=== PATIENT | male | born 2000 | race Caucasian/White ===

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

== ENCOUNTER 2021-07-28 20:57 | Emergency (ER) | payer MEDICAID, SELFPAY ==
--- NOTE | ~2021-07-28 | XR_ITS ---
EXAMINATION: XR KNEE, RIGHT CLINICAL INFORMATION: Decreased range of motion History of right ACL tear COMPARISON: 06/09/2019 TECHNIQUE: Four views of the right knee. FINDINGS: There is a moderate joint effusion. Sclerotic tracks through the distal femur and proximal tibia suggest surgical repair of the anterior cruciate ligament. No acute fracture. Bones are normally mineralized. XR/XR knee RT 4V IMPRESSION: 1. Moderate joint effusion. 2. Postsurgical change.
[2021-07-28 20:59] VITALS: BP 127/65; PULSE 60; RESP 16; TEMP 36.6; O2SAT 99; BMI 39.9
[2021-07-28 22:00] VITALS: BP 123/73; PULSE 57; RESP 16; TEMP 36.7; O2SAT 99
--- NOTE | 2021-07-28 22:12 | ED_ITS ---
HPI - Extremity Injury (Lower) General Chief Complaint: Extremity Injury, Lower Stated Complaint: knee pain Time Seen by Provider: 07/28/21 22:06 Source: patient Mode of arrival: ambulatory Limitations: no limitations History of Present Illness HPI Narrative: Patient comes emergency room complaining of right knee pain. Patient states that 2 days ago he was playing basketball, hurt his knee popping multiple times while he was playing. Since then, patient has been able to bear weight, pain is 2/10, patient states that his knee feels stiff when ever he bends it but is not painful. Patient able to walk normal. Patient concerned about his home because several years ago he had a right ACL tear complaint: knee injury Related Data Allergies Allergy/AdvReac Type Severity Reaction Status Date / Time No Known Allergies Allergy Unverified 07/28/21 21:04 Review of Systems Review of Systems: Constitutional : No Weight loss, No Fever, No Chills, No Night Sweats, No Fatigue, No Malaise ENT/Mouth : No Hearing loss, No Ear Pain, No Nasal Congestion, No Sinus Pain, No Hoarseness, No sore throat, No Rhinorrhea, No Swallowing Difficulty Eyes: No Eye Pain, No Swelling, No Redness, No Foreign Body, No Discharge, No Vision Changes Cardiovascular : No Chest Pain, No SOB, No Dyspnea on Exertion, No Orthopnea, No Edema, No Palpitations Respiratory : No Cough, No Sputum, No Wheezing, No Smoke Exposure, No Dyspnea Gastrointestinal : No Nausea, No Vomiting, No Diarrhea, No Constipation, No abdominal Pain, No Hematochezia, No Melena Genitourinary : no irregular bleeding, No Dysuria, No Urinary Frequency, No Hematuria, No Urinary Incontinence, No Urgency, No Flank Pain, No Urinary Flow Changes, No Hesitancy Musculoskeletal : Complaining of right knee stiffness, mild right knee discomfort, No Myalgias, No Joint Swelling Skin : No Skin Lesions, No rash Neuro : No Weakness, No Numbness, No Paresthesias, No Loss of Consciousness, No Dizziness, No Headache Psych : No Anxiety/Panic, No Depression, No SI/HI/AH/VH, No Social Issues, Heme/Lymph: No Bruising, No Bleeding,No Lymphadenopathy Endocrine : No Polyuria, No Polydipsia, No Temperature Intolerance PMFSH Past Medical History Medical History Asthma Surgical History History of repair of ACL Social History Social History Advance Directives: No Advance Directives Information Provided: No Physical Exam Vital Signs: Vital Signs: Last Vital Signs Temp 98.1 F 07/28/21 22:00 Pulse 57 07/28/21 22:00 Resp 16 07/28/21 22:00 BP 123/73 07/28/21 22:00 Pulse Ox 99 07/28/21 22:00 Body Mass Index 39.9 Const: Other: Appearance: Alert. Oriented X3. No acute distress. Eyes: Pupils equal, round and reactive to light. ENT: Pharynx normal. Neck: Normal inspection. Neck supple. No lymph nodes noted. No crepitus CVS: Normal heart rate and rhythm. Pulses normal. Normal S1 and S2 Respiratory: No respiratory distress. Breath sounds normal. No Wheezing. No rales Abdomen: Soft and nontender. No rigidity. No distention. good BS x4 Skin: Skin warm and dry. Normal skin color. Normal skin turgor. Extremities: No lower extremity edema. Patient is able to bear weight, able to flex and extend the right knee. Mild discomfort to palpation around the patella, seems to have a knee effusion Neuro: Oriented X 3. No motor deficit. No sensory deficit. Moving all extermities. No slurred speech. Course Course Course Narrative: I discussed with the patient that the x-ray shows chronic changes plus a moderate joint effusion. Discussed with the patient that he needs to be seen by his PCP, he may need an MRI. At this time, patient states that the pain is very minimal, declined crutches, states he can walk well. Knee is not erythematous, not painful to touch, joint infection is not suspected MDM - Extremity Injury (Lower) Imaging Data Right knee x-ray: Radiologist's impression: There is a moderate joint effusion. Sclerotic tracks through the distal femur and proximal tibia suggest surgical repair of the anterior cruciate ligament. No acute fracture. Bones are normally mineralized.? XR/XR knee RT 4V IMPRESSION: ? 1. Moderate joint effusion. 2. Postsurgical change. Discharge Plan Discharge Clinical Impression: Effusion of knee joint right Patient Disposition: Home, Self-Care Instructions: Swollen Knee Joint (ED) Additional Instructions: Please follow-up with your primary care physician tomorrow. If you have any worsening or new symptoms, please return to the emergency room or call 911 Referrals: Aquilino Rasmussen PA-C [Physician Mutual Fund Manager] - 2 days
== END 2021-07-28 22:42 | disposition home or self-care (01) ==
PROVIDERS: Emergency Provider Emergency Medicine
DX: M25.461 Effusion, right knee (principal); M25.561 Pain in right knee
CPT/HCPCS: 73564; 99283; 99284

== ENCOUNTER 2021-08-06 12:57 | Outpatient (REF) | payer MEDICAID, SELFPAY ==
--- NOTE | ~2021-08-06 | MR_ITS ---
EXAMINATION: MR KNEE WITHOUT CONTRAST, RIGHT CLINICAL INFORMATION: Swelling. Pain status post basketball injury. Prior ACL surgery. COMPARISON: None TECHNIQUE: MRI of the knee without contrast was performed using routine sequences on a high-field scanner. FINDINGS: MENISCI: Medial Meniscus: There is a peripheral longitudinal tear of the medial meniscus at the capsular attachment, consistent with a ramp lesion. Lateral Meniscus: An ill-defined partial tear of the posterior root insertion may be chronic as the margins appear frayed. A horizontal tear is present at the superior surface of the junction of the anterior horn and body with partial extrusion of the meniscal body. LIGAMENTS: Cruciate: ACL graft is completely torn with laxity of the remaining fibers in the intercondylar notch. PCL is intact. There is mild cystic expansion of the tibial tunnel, measuring up to 1.4 cm in diameter. Collateral: Intact EXTENSOR MECHANISM: Intact ARTICULAR CARTILAGE/BONE: Patellofemoral Compartment: Small partial-thickness chondral fissures are present at the medial patellar and trochlear facets. Trochlear cartilage is normal. Medial Compartment: Mild chondral thinning is noted at the lateral tibial plateau posteriorly with minimal subchondral edema. There are small marginal osteophytes. Lateral Compartment: Small marginal osteophytes. Minimal chondral fissuring at the posterior margin of the lateral tibial plateau. JOINT FLUID AND BURSAE: Small joint effusion. No Alexander's cyst. MR/MR knee RT wo con IMPRESSION: 1. Complete tear of the ACL graft. Mild cystic expansion of the tibial tunnel. 2. Peripheral longitudinal tear at the posterior horn of the medial meniscus. 3. Two separate tears of the lateral meniscus. The partial tear at the posterior root insertion may be chronic in nature. 4. Minimal tricompartmental arthrosis. 4. Small joint effusion.
== END 2021-08-06 12:58 | disposition home or self-care (01) ==
LOC: HO.MRI 12:57
PROVIDERS: PCP Internal Medicine; Visit Provider Internal Medicine
DX: M25.461 Effusion, right knee (principal); M25.561 Pain in right knee
CPT/HCPCS: 73721

== ENCOUNTER 2021-08-07 07:51 | Outpatient (REF) | payer MEDICAID, SELFPAY ==
--- NOTE | ~2021-08-07 | XR_ITS ---
EXAMINATION: XR KNEE, RIGHT CLINICAL INFORMATION: Knee pain COMPARISON: Right knee radiograph from 07/28/2021 TECHNIQUE: [place] view of the right knee FINDINGS: No acute visible fracture or dislocation. Evaluation is limited without orthogonal projections. XR/XR knee RT 1V IMPRESSION: 1. No acute visible fracture or dislocation. 2. Evaluation is limited without orthogonal projections.
== END 2021-08-07 07:52 | disposition home or self-care (01) ==
LOC: HO.HOSX 07:51
PROVIDERS: Visit Provider Physician Assistant
DX: S83.91XA Sprain of unspecified site of right knee, initial encounter (principal)
CPT/HCPCS: 73560; 99202

== ENCOUNTER → 2022-12-17 08:41 | Outpatient (BNVA) | payer SELFPAY | PROVIDERS: Visit Provider Physician Assistant | DX: Z02.79 Encounter for issue of other medical certificate (principal) ==

== ENCOUNTER 2023-08-12 15:11 | Outpatient (REF) | payer MEDICAID, SELFPAY ==
--- NOTE | ~2023-08-12 | XR_ITS ---
EXAMINATION: XR KNEE, LEFT CLINICAL INFORMATION: Left knee injury. COMPARISON: 06/09/2019 TECHNIQUE: Four views of the left knee. FINDINGS: Alignment is anatomic. Joint spaces are maintained. No displaced fracture. No significant joint effusion. XR/XR knee LT 4V IMPRESSION: No acute abnormality.
== END 2023-08-12 15:12 | disposition home or self-care (01) ==
LOC: HO.HHCX 15:11
PROVIDERS: Visit Provider Family Medicine
DX: M25.562 Pain in left knee (principal)
CPT/HCPCS: 73564

== ENCOUNTER 2024-01-25 10:58 | Outpatient (AMB) | payer MEDICAID, SELFPAY ==
--- NOTE | 2024-01-25 11:06 | MHC.OFFVIS ---
Intake Vital Signs 01/25/24 11:08 Height 5 ft 7 in Weight 242 lb BMI 37.9 Intake Visit Reasons: New Prob - B/L knee pain Intake Note: Ten is a 23 year old male who presents today for a evaluation of his bilateral knee pain. Patient reports his main concerns is his right knee, however he is having similar symptoms in pain on his left knee. He states that his right knee is worse than his left knee. Patient would like to know if he is able to get a knee brace for his right knee to help him out when he works. Allergies No Known Allergies Allergy (Verified 01/25/24 11:11) HPI New Prob - B/L knee pain HPI Details 23-year-old male who presents in the office today for a follow up of bilateral knee pain. The patient was last seen in the office by Dr. Gallardo on 08/07/2021. He had reported sustaining an injury to the right knee on 07/26/2021 while playing basketball. While in the office today the patient reports his main concern is his right knee. He does reports similar symptoms in the left knee, but states the right knee is worse than the left knee. He would like to discuss the use of a brace to support the right knee when he works. Patient has a surgical history of right knee ACL reconstruction on 08/03/[address] Layne. 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 No ecchymosis, erythema, or joint effusion. No tenderness to palpation to the medial or lateral joint lines. Full ROM. Crepitus felt with ROM. Negative Kaz's. Slight laxity with anterior drawer. NVI. Left knee: Normal to inspection. No ecchymosis, erythema, or joint effusion. No tenderness to palpation to the medial or lateral joint lines. Full knee extension and flexion. Negative Kaz's. Negative anterior drawer. NVI. Popping sensation felt bilaterally. Patient pointed to the anterior aspect of the bilateral knees. Assessment & Plan Assessment & Plan (1) History of repair of anterior cruciate ligament of right knee: Onset Date: ~08/03/19 Comment: Right knee ACL reconstruction Dr. Layne Code(s): Z98.890 - Other specified postprocedural states (2) Left anterior knee pain: Code(s): M25.562 - Pain in left knee (3) Right anterior knee pain: Code(s): M25.561 - Pain in right knee (4) Internal derangement of right knee: Code(s): M23.91 - Unspecified internal derangement of right knee (5) Internal derangement of left knee: Code(s): M23.92 - Unspecified internal derangement of left knee Plan Mr. Roger Guzman is a 23-year-old male who presents in the office today for a follow up of bilateral knee pain. The patient was last seen in the office by Dr. Gallardo on 08/07/2021. He had reported sustaining an injury to the right knee on 07/26/2021 while playing basketball. While in the office today the patient reports his main concern is his right knee. He does reports similar symptoms in the left knee, but states the right knee is worse than the left knee. He would like to discuss the use of a brace to support the right knee when he works. Patient has a surgical history of right knee ACL reconstruction on 08/03/[address] Layne. The patient has requested the use of knee brace for the bilateral knees. Patient has a history of right knee ACL reconstruction with Dr. Layne. Therefore, I have placed an order for him to be fitted with a custom ACL defiance brace for the right knee. He reports that his symptoms are identical for the left knee and therefore I would like for him to also be fitted for an ACL defiance brace, custom made, for the left knee as well. An order has been placed for them to reach out to the patient. If he does not hear from them in the next week or so I would like for him to contact our office to follow up. Follow up will be PRN, or sooner if needed. X-rays of the bilateral knees which were obtained while in the office today and were reviewed by me, Mana Tripathi PA-C, revealed no acute fracture or dislocation. Orders: Orders XR knee standing BI Today M25.569 - Pain in unspecified knee XR knee RT 2V Today M25.569 - Pain in unspecified knee XR knee LT 2V Today M25.569 - Pain in unspecified knee Patient Instructions: Scribed by Doris Coulter, medical staff services manager, for Mana Tripathi PA-C on 01/25/2024 at 11:02 am, EST. Coding Level of Care Code Est Pt Level 4 (49854) Diagnoses History of repair of anterior cruciate ligament of right knee Z98.890 Left anterior knee pain M25.562 Right anterior knee pain M25.561 Internal derangement of right knee M23.91 Internal derangement of left knee M23.92
[2024-01-25 11:08] VITALS: BMI 37.9
== END 2024-01-25 11:28 | disposition home or self-care (01) ==
PROVIDERS: PCP Internal Medicine; Visit Provider Physician Assistant
DX: M25.562 Pain in left knee (principal); M25.561 Pain in right knee; M23.91 Unspecified internal derangement of right knee; M23.92 Unspecified internal derangement of left knee
CPT/HCPCS: 99213

== ENCOUNTER 2024-01-25 17:00 | Outpatient (REF) | payer OTHER, SELFPAY ==
--- NOTE | ~2024-01-25 | XR_ITS ---
EXAMINATION: XR BILATERAL KNEES CLINICAL INFORMATION: Bilateral knee pain. COMPARISON: Left knee 08/12/2023, right knee 08/07/2021 and 07/28/2021, bilateral knees 06/09/2019. TECHNIQUE: Single AP standing view of both knees was obtained along with a lateral and skyline view of each knee individually. FINDINGS: Joint spaces are well maintained. No joint effusions are seen. On the right, there is some mild sclerotic change in the region of the tibial tubercles. No fractures are seen. No chondrocalcinosis. XR/XR knee standing BI IMPRESSION: No significant abnormality is seen.
--- NOTE | ~2024-01-25 | XR_ITS ---
EXAMINATION: XR BILATERAL KNEES CLINICAL INFORMATION: Bilateral knee pain. COMPARISON: Left knee 08/12/2023, right knee 08/07/2021 and 07/28/2021, bilateral knees 06/09/2019. TECHNIQUE: Single AP standing view of both knees was obtained along with a lateral and skyline view of each knee individually. FINDINGS: Joint spaces are well maintained. No joint effusions are seen. On the right, there is some mild sclerotic change in the region of the tibial tubercles. No fractures are seen. No chondrocalcinosis. XR/XR knee LT 2V IMPRESSION: No significant abnormality is seen.
--- NOTE | ~2024-01-25 | XR_ITS ---
EXAMINATION: XR BILATERAL KNEES CLINICAL INFORMATION: Bilateral knee pain. COMPARISON: Left knee 08/12/2023, right knee 08/07/2021 and 07/28/2021, bilateral knees 06/09/2019. TECHNIQUE: Single AP standing view of both knees was obtained along with a lateral and skyline view of each knee individually. FINDINGS: Joint spaces are well maintained. No joint effusions are seen. On the right, there is some mild sclerotic change in the region of the tibial tubercles. No fractures are seen. No chondrocalcinosis. XR/XR knee RT 2V IMPRESSION: No significant abnormality is seen.
== END 2024-01-25 17:01 | disposition home or self-care (01) ==
LOC: HO.HOSX 17:00
PROVIDERS: Visit Provider Physician Assistant
DX: M25.562 Pain in left knee (principal); M25.561 Pain in right knee; M23.91 Unspecified internal derangement of right knee; M23.92 Unspecified internal derangement of left knee; Z98.890 Other specified postprocedural states
CPT/HCPCS: 73560; 73565; 99212